=== PATIENT | female | born 1965 | race Caucasian/White ===

== ENCOUNTER 2020-06-14 11:22 | Emergency (ER) | payer OTHER ==
[~2020-06-14] VITALS: Ht 167.6 cm; Wt 99.8 kg
[2020-06-14] MEDS ORDERED: PANTOPRAZOLE SO40 MG PO (11:52)
[2020-06-14] MEDS ORDERED: ATENOLOL100 MG PO (11:52)
[2020-06-14] MEDS ORDERED: ALPRAZOLAM0.25 MG PO (11:53)
[2020-06-14] MEDS ORDERED: ESCITALOPRAM OX10 MG PO (11:53)
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
== END 2020-06-14 13:10 | disposition home or self-care (01) ==
LOC: ED 11:22
DX: S61.212A Laceration without foreign body of right middle finger without damage to nail, initial encounter (principal); W26.8XXA Contact with other sharp object(s), not elsewhere classified, initial encounter; E03.9 Hypothyroidism, unspecified; Z79.899 Other long term (current) drug therapy
CPT/HCPCS: 12001; 99282-25

== ENCOUNTER 2020-09-13 17:30 | Emergency (ER) | payer OTHER ==
[~2020-09-13] VITALS: Ht 167.6 cm; Wt 98.4 kg
[~2020-09-13 17:30] MED LIST: ALPRAZOLAM0.25 MG PO; ATENOLOL100 MG PO; ESCITALOPRAM OX10 MG PO; PANTOPRAZOLE SO40 MG PO
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
[2020-09-13] MEDS ORDERED: AUGMENTIN 875-1 EACH PO (17:46)
== END 2020-09-13 18:01 | disposition home or self-care (01) ==
LOC: ED 17:30
DX: S61.432A Puncture wound without foreign body of left hand, initial encounter (principal); W22.8XXA Striking against or struck by other objects, initial encounter; E03.9 Hypothyroidism, unspecified; Z79.899 Other long term (current) drug therapy
CPT/HCPCS: 73130; 99283-25

== ENCOUNTER 2023-04-08 13:21 | Emergency (ER) | payer OTHER ==
[~2023-04-08] VITALS: Ht 167.6 cm; Wt 106.8 kg
--- OUTSIDE RECORDS SUMMARY | ~2023-04-08 | XMS | Continuity of Care Document ---
Demographics + + + | Address | [address] | | | [place] [address] | + + + | Preferred Language | Unknown | + + + | Marital Status | | + + + | Cheondoism Affiliation | Unknown | + + + | Race | White | + + + | Ethnic Group | Not or | + + + Author + + + | Author | [facility] | + + + | Organization | [facility] | + + + | Address | [address] | | | [place] [address] | + + + | Phone | | + + + Care Team Providers + + + + | Care Enforcement Safety Officer Name | Role | Phone | + + + + Unavailable | Unavailable | + + + + Unavailable | Unavailable | + + + + Allergies No information. Encounters No information. Functional Status No information. Immunizations No information. Medications + + + + | date | description | facility | + + + + | 2023-01-26 00:00 | PSEUDOEPHEDRINE HCL | [facility] | + + + + | 2023-01-26 00:00 | Plecanatide | [facility] | + + + + | 2023-01-26 00:00 | ATENOLOL | [facility] | + + + + | 2023-01-26 00:00 | ALPRAZOLAM | [facility] | + + + + | 2023-01-26 00:00 | PANTOPRAZOLE SODIUM | [facility] | + + + + | 2023-01-26 00:00 | ESCITALOPRAM OXALATE | [facility] | + + + + | 2020-09-13 00:00 | AMOXICILLIN/POTASSIUM CLAV | [facility] | | | | | + + + + | 2023-01-26 00:00 | LEVOTHYROXINE SODIUM | [facility] | + + + + Problems + + + + | date | description | facility | + + + + | 2020-09-13 00:00 | Puncture wound | [facility] | + + + + | 2023-01-26 00:00 | Upper respiratory tract | [facility] | | | infection | | + + + + | 2023-01-26 18:28 | HYPOTHYROIDISM, | [facility] | | | UNSPECIFIED | | + + + + | 2023-01-26 18:28 | ACUTE UPPER RESPIRATORY | [facility] | | | INFECTION, UNSPECIFIED | | + + + + | 2023-01-26 18:28 | CHILLS (WITHOUT FEVER) | [facility] | + + + + | 2023-01-26 18:28 | OTHER LOGISTICS PROJECT MANAGER (CURRENT) | [facility] | | | DRUG THERAPY | | + + + + Procedures No information. Results/Labs +--------+--------+ +---------+--------+---------+ | test | date | facility | value | unit | notes | +--------+--------+ +---------+--------+---------+ + + | Result panel 1 | + + + + + +-------+ + + | | 2023-01-26 | [facility] | 6.8 | (missing) | (missing) | | (unavailable [facility] | | | + + + +-------+ + + + + | Result panel 2 | + + + + + +--------+ + + | | 2023-01-26 | [facility] | 76.7 | (missing) | (missing) | | (unavailable | [facility] | | | | + + + +--------+ + + + + | Result panel 3 | + + + + + +-------+ + + | | 2023-01-26 | [facility] | 6.0 | (missing) | (missing) | | (unavailable | [facility] | | | | + + + +-------+ + + + + | Result panel 4 | + + + + + +--------+ + + | | 2023-01-26 | [facility] | 13.3 | (missing) | (missing) | | (unavailable | [facility] | | | | + + + +--------+ + + + + | Result panel 5 | + + + + + +-------+ + + | | 2023-01-26 | [facility] | 3.8 | (missing) | (missing) | | (unavailable | [facility] | | | | + + + +-------+ + + + + | Result panel 6 | + + + + + +-------+ + + | | 2023-01-26 | [facility] | 0.2 | (missing) | (missing) | | (unavailable | [facility] | | | | + + + +-------+ + + + + | Result panel 7 | + + + + + +--------+ + + | | 2023-01-26 | [facility] | 4.73 | (missing) | (missing) | | (unavailable | [facility] | | | | + + + +--------+ + + + + | Result panel 8 | + + + + + +--------+ + + | | 2023-01-26 | [facility] | 13.7 | (missing) | (missing) | | (unavailable | [facility] | | | | + + + +--------+ + + + + | Result panel 9 | + + + + + +-------+---------+ + | | 2023-01-26 | [facility] | 107 | mg/dL | (missing) | | (unavailable | [facility] | | | | + + + +-------+---------+ + + + | Result panel 10 | + + + + + +------+---------+ + | | 2023-01-26 | [facility] | 13 | mg/dL | (missing) | | (unavailable | [facility] | | | | + + + +------+---------+ + + + | Result panel 11 | + + + + + +--------+---------+ + | | 2023-01-26 | [facility] | 0.91 | mg/dL | (missing) | | (unavailable | [facility] | | | | + + + +--------+---------+ + + + | Result panel 12 | + + + + + +------+ + + | | 2023-01-26 | [facility] | 74 | (missing) | (missing) | | (unavailable | [facility] | | | | + + + +------+ + + + + | Result panel 13 | + + + + + +---------+ + + | | 2023-01-26 | [facility] | 14.28 | (missing) | (missing) | | (unavailable | [facility] | | | | + + + +---------+ + + + + | Result panel 14 | + + + + + +--------+ + + | | 2023-01-26 | [facility] | 41.4 | (missing) | (missing) | | (unavailable | [facility] | | | | + + + +--------+ + + + + | Result panel 15 | + + + + + +-------+ + + | | 2023-01-26 | [facility] | 140 | (missing) | (missing) | | (unavailable | [facility] | | | | + + + +-------+ + + + + | Result panel 16 | + + + + + +-------+ + + | | 2023-01-26 | [facility] | 4.0 | (missing) | (missing) | | (unavailable | [facility] | | | | + + + +-------+ + + + + | Result panel 17 | + + + + + +-------+ + + | | 2023-01-26 | [facility] | 105 | (missing) | (missing) | | (unavailable | [facility] | | | | + + + +-------+ + + + + | Result panel 18 | + + + + + +------+ + + | | 2023-01-26 | [facility] | 24 | (missing) | (missing) | | (unavailable | [facility] | | | | + + + +------+ + + + + | Result panel 19 | + + + + + +--------+ + + | | 2023-01-26 | [facility] | 15.0 | (missing) | (missing) | | (unavailable | [facility] | | | | + + + +--------+ + + + + | Result panel 20 | + + + + + +-------+---------+ + | | 2023-01-26 | [facility] | 8.6 | mg/dL | (missing) | | (unavailable | [facility] | | | | + + + +-------+---------+ + + + | Result panel 21 | + + + + + +-------+ + + | | 2023-01-26 | [facility] | 7.1 | (missing) | (missing) | | (unavailable | [facility] | | | | + + + +-------+ + + + + | Result panel 22 | + + + + + +-------+ + + | | 2023-01-26 | [facility] | 3.8 | (missing) | (missing) | | (unavailable | [facility] | | | | + + + +-------+ + + + + | Result panel 23 | + + + + + +-------+ + + | | 2023-01-26 | [facility] | 3.3 | (missing) | (missing) | | (unavailable | [facility] | | | | + + + +-------+ + + + + | Result panel 24 | + + + + + +--------+ + + | | 2023-01-26 | [facility] | 1.15 | (missing) | (missing) | | (unavailable | [facility] | | | | + + + +--------+ + + + + | Result panel 25 | + + + + + +--------+ + + | | 2023-01-26 | [facility] | 87.6 | (missing) | (missing) | | (unavailable | [facility] | | | | + + + +--------+ + + + + | Result panel 26 | + + + + + +-------+ + + | | 2023-01-26 | [facility] | 0.7 | (missing) | (missing) | | (unavailable | [facility] | | | | + + + +-------+ + + + + | Result panel 27 | + + + + + +------+ + + | | 2023-01-26 | [facility] | 17 | (missing) | (missing) | | (unavailable | [facility] | | | | + + + +------+ + + + + | Result panel 28 | + + + + + +------+ + + | | 2023-01-26 | [facility] | 31 | (missing) | (missing) | | (unavailable | [facility] | | | | + + + +------+ + + + + | Result panel 29 | + + + + + +------+ + + | | 2023-01-26 | [facility] | 84 | (missing) | (missing) | | (unavailable | [facility] | | | | + + + +------+ + + + + | Result panel 30 | + + + + + +------+ + + | | 2023-01-26 | [facility] | 80 | (missing) | (missing) | | (unavailable | [facility] | | | | + + + +------+ + + + + | Result panel 31 | + + + + + +--------+ + + | | 2023-01-26 | [facility] | 29.0 | (missing) | (missing) | | (unavailable | [facility] | | | | + + + +--------+ + + + + | Result panel 32 | + + + + + +--------+ + + | | 2023-01-26 | [facility] | 33.1 | (missing) | (missing) | | (unavailable | [facility] | | | | + + + +--------+ + + + + | Result panel 33 | + + + + + +--------+ + + | | 2023-01-26 | [facility] | 14.1 | (missing) | (missing) | | (unavailable | [facility] | | | | + + + +--------+ + + + + | Result panel 34 | + + + + + +-------+ + + | | 2023-01-26 | [facility] | 195 | (missing) | (missing) | | (unavailable | [facility] | | | | + + + +-------+ + + + + | Result panel 35 | + + + + + + + + + | | 2023-01-26 | [facility] | NEGATIVE | (missing) | (missing) | | (unavailable | [facility]50[facility] | | | | + + + + + + + + + | Result panel 36 | + + + + + + + + + | | 2023-01-26 | [facility] | NEGATIVE | (missing) | (missing) | | (unavailable | [facility] | | | | + + + + + + + + + | Result panel 37 | + + + + + + + + + | | 2023-01-26 | [facility] | NEGATIVE | (missing) | (missing) | | (unavailable | [facility] | | | | + + + + + + + + + | Result panel 38 | + + + + + + + + + | | 2023-01-26 | [facility] | NEGATIVE | (missing) | (missing) | | (unavailable | [facility] | | | | + + + + + + + + + | Result panel 39 | + + + + + + + + + | | 2023-01-26 | [facility] | YELLOW | (missing) | (missing) | | (unavailable | [facility]27[facility]07 [facility] | | | | + + + + + + + + + | Result panel 40 | + + + + + +---------+ + + | | 2023-01-26 | [facility] | CLEAR | (missing) | (missing) | | (unavailable | [facility]27[facility] | | | | + + + +---------+ + + + + | Result panel 41 | + + + + + + + + + | | 2023-01-26 | [facility] | NEGATIVE | (missing) | (missing) | | (unavailable | [facility]27[facility] | | | | + + + + + + + + + | Result panel 42 | + + + + + + + + + | | 2023-01-26 | [facility] | NEGATIVE | (missing) | (missing) | | (unavailable | [facility]27[facility] | | | | + + + + + + + + + | Result panel 43 | + + + + + + + + + | | 2023-01-26 | [facility] | NEGATIVE | (missing) | (missing) | | (unavailable | [facility]27[facility] | | | | + + + + + + + + + | Result panel 44 | + + + + + +---------+ + + | | 2023-01-26 | [facility] | 1.020 | (missing) | (missing) | | (unavailable | [facility]27[facility] | | | | + + + +---------+ + + + + | Result panel 45 | + + + + + + + + + | | 2023-01-26 | [facility] | TRACE-I | (missing) | (missing) | | (unavailable | [facility]:27[facility] | | | | + + + + + + + + + | Result panel 46 | + + + + + +-------+ + + | | 2023-01-26 | [facility] | 5.5 | (missing) | (missing) | | (unavailable | [facility]27[facility] | | | | + + + +-------+ + + + + | Result panel 47 | + + + + + + + + + | | 2023-01-26 | [facility] | NEGATIVE | (missing) | (missing) | | (unavailable | [facility]:27[facility] | | | | + + + + + + + + + | Result panel 48 | + + + + + + + + + | | 2023-01-26 | [facility] | NORMAL | (missing) | (missing) | | (unavailable | [facility]:27[facility] | | | | + + + + + + + + + | Result panel 49 | + + + + + + + + + | | 2023-01-26 | [facility] | NEGATIVE | (missing) | (missing) | | (unavailable | [facility] | | | | + + + + + + + + + | Result panel 50 | + + + + + + + + + | | 2023-01-26 | [facility] | NEGATIVE | (missing) | (missing) | | (unavailable | [facility] | | | | + + + + + + + + + | Result panel 51 | + + + + + +-------+ + + | | 2023-01-26 | [facility] | 2-3 | (missing) | (missing) | | (unavailable | [facility] | | | | + + + +-------+ + + + + | Result panel 52 | + + + + + +-------+ + + | | 2023-01-26 | [facility] | 0-1 | (missing) | (missing) | | (unavailable | [facility] | | | | + + + +-------+ + + + + | Result panel 53 | + + + + + + + + + | | 2023-01-26 | [facility] | NONE SEEN | (missing) | (missing) | | (unavailable | [facility] | | | | + + + + + + + + + | Result panel 54 | + + + + + + + + + | | 2023-01-26 | [facility] | NONE SEEN | (missing) | (missing) | | (unavailable | [facility] | | | | + + + + + + + + + | Result panel 55 | + + + + + + + + + | | 2023-01-26 | [facility] | NONE SEEN | (missing) | (missing) | | (unavailable | [facility] | | | | + + + + + + + + + | Result panel 56 | + + + + + + + + + | | 2023-01-26 | [facility] | NONE SEEN | (missing) | (missing) | | (unavailable | [facility] | | | | + + + + + + + + + | Result panel 57 | + + + + + +------+ + + | | 2023-01-26 | [facility] | No | (missing) | (missing) | | (unavailable | [facility]27[facility] | | | | + + + +------+ + + + + | Result panel 58 | + + + + + + + + + | | 2023-01-26 | [facility] | CLEAN CATCH | (missing) | (missing) | | (unavailable | [facility] | | | | + + + + + + + Social History No information. Vital Signs + + + +---------+ | date | measurement | value | units | + + + +---------+ | 2023-01-26 00:00 | BMI | 36.8 | kg/m2 | + + + +---------+ | 2023-01-26 00:00 | BP_diastolic | 54 | mmHg | + + + +---------+ | 2023-01-26 00:00 | BP_systolic | 130 | mmHg | + + + +---------+ | 2023-01-26 00:00 | heart_rate | 85 | /min | + + + +---------+ | 2023-01-26 00:00 | height_metric | 167.64 | cm | + + + +---------+ | 2023-01-26 00:00 | height_standard | 66 | in | + + + +---------+ | 2023-01-26 00:00 | o2_saturation | 96 | % | + + + +---------+ | 2023-01-26 00:00 | respiration_rate | 19 | /min | + + + +---------+ | 2023-01-26 00:00 | temperature_metric | 37.94 | C | | | | | | + + + +---------+ | 2023-01-26 00:00 | | 100.3 | F | | | temperature_standar | | | | | d | | | + + + +---------+ | 2023-01-26 00:00 | weight_metric | 103.42 | kg | + + + +---------+ | 2023-01-26 00:00 | weight_standard | 228 | lb | + + + +---------+"
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
[~2023-04-08 13:21] MED LIST changes: +AUGMENTIN 875-1 EACH PO; +LEVOTHYROXINE100 MCG PO; +NASAL DECONGEST30 MG PO; +TRULANCE3 MG PO
[2023-04-08 14:40] VITALS: BP 127/78
== END 2023-04-08 14:40 | disposition home or self-care (01) ==
LOC: ED 13:21
DX: M79.662 Pain in left lower leg (principal); Z79.899 Other long term (current) drug therapy
CPT/HCPCS: 93971; 99283-25